=== PATIENT | male | born 1970 | race Caucasian/White ===

== ENCOUNTER 2023-06-13 11:16 | Outpatient (CLI) | payer BC, SELFPAY ==
--- NOTE | ~2023-06-13 | PE_ITS ---
EXAMINATION: PET_PETPSMAST_PT DATE: 06/13/2023 14:16 INDICATION: Prostate cancer TECHNIQUE: 8.705 mCi of pipflufolastat F-18 (18-F-DCFPyL) was administered i.v. Low dose computed to mography (CT) images were acquired from the base of the brain to the base of the brain to the proxima l thighs for attenuation correction and anatomic localization. Positron emission tomography (PET) carrol ges were acquired in the same distribution beginning 99 minutes after injection. Images including fus ed PET/CT images were reconstructed in axial, coronal, and sagittal planes. Automated exposure contro l technique was employed. The dose-length product was 667.76mGy-cm. COMPARISON: None FINDINGS: Head/neck: Typical pattern of symmetric physiologic increased activity in the lacrimal, parotid and submandibula r glands as well as along the mucosa of the nasal and oral cavities, the bela-, naso- and hypopharynx, the glottis and esophagus. There is also a typical pattern of symmetric tiny foci of mild likely phy siologic neural ganglia uptake at a few bilateral cervical neural foramina. No pathologically enlarge d cervical lymphadenopathy or suspicious foci of increased uptake in the visualized head or neck. Chest: No pulmonary nodules, pneumonia, pulmonary edema or other pulmonary infiltrates. Heart size is normal . Small amount of atherosclerotic coronary artery calcific lesion. No pericardial or pleural effusion . No pathologically enlarged or PSMA avid thoracic lymphadenopathy. Abdomen/pelvis/proximal thighs: Physiologic renal accumulation and excretion of activity in the kidneys, bladder and along portions o f ureters. Normal degree and slightly heterogenous pattern of increased uptake throughout the liver a nd spleen without radiologic correlate or dominant PSMA avid lesion. Cholecystectomy clips at the gal lbladder fossa. The pancreas and bilateral adrenal glands are normal. Moderate uptake scattered throu ghout the bowels with typical duodenal and proximal jejunal predominance and without radiologic corre late, also likely physiologic. Postoperative change of bilateral inguinal hernia repairs. There is as ymmetric left-sided predominant increased activity in the posterior peripheral zone of the prostate t he most intense focus on the left with maximal SUV of 5.8 consistent with primary prostate cancer. Ty pical pattern of small foci of mild likely physiologic neural ganglia uptake at a few of the bilatera l sacral and lower lumbar neural foramina. No other abnormal foci of increased uptake or pathological ly enlarged lymphadenopathy in the abdomen, pelvis or proximal thighs. Musculoskeletal: C5-C6 anterior spinal fusion with anterior plate and screw fixation. Mild lumbar levocurvature with m ild spondylosis. No suspicious lytic, blastic or PSMA avid bone lesions identified. A few foci of ski n contamination at the dorsum of the right hand and wrist. IMPRESSION: 1. Mild uptake in the prostate most prominent in the left peripheral zone consistent with reported pr imary prostate cancer. No evident metastatic disease. Reviewed, dictated and finalized at location A. PRESIDENT IMPRESSION: 1. Mild uptake in the prostate most prominent in the left peripheral zone consi stent with reported primary prostate cancer. No evident metastatic disease.
== END 2023-06-13 11:17 | disposition home or self-care (01) ==
PROVIDERS: PCP Nurse Practitioner Family; Visit Provider Urology
DX: C61 Malignant neoplasm of prostate (principal)
CPT/HCPCS: 78815; A9595

== ENCOUNTER 2024-08-09 09:30 | Emergency (ER) | payer BC, SELFPAY ==
[2024-08-09] VITALS (8 sets, daily range): BP systolic 126–148; BP diastolic 73–85; PULSE 84–106; RESP 15–20; TEMP 36.4; O2SAT 97–100
--- NOTE | ~2024-08-09 | CT_ITS ---
EXAMINATION: CT abdomen pelvis w con DATE: 08/09/2024 12:04 INDICATION: Upper abdomen pain. TECHNIQUE: Computed tomography (CT) of the abdomen and pelvis was performed with 100 cc Omnipaque 350 intravenous contrast. The dose-length product was 492.89 mGy-cm. Automated exposure control and iter ative reconstruction technique were employed. COMPARISON: None. FINDINGS: Lung bases are unremarkable. Heart size normal. No significant pleural or pericardial effus ion. There is atherosclerosis of the aorta without aneurysm or dissection. Fatty infiltration of the liver. The spleen, pancreas, adrenal glands are unremarkable. There are sma ll subcentimeter hypodensities of the kidneys, too small to characterize, although likely benign no r enal stones or hydronephrosis. Small fat-containing umbilical hernia. Nonobstructive bowel gas patter n. There are changes of prior lower abdominal hernia repair. Status post cholecystectomy.. Normal mic endix. IMPRESSION: 1. No acute abdominal abnormality. Reviewed, dictated and finalized at location B. ESS REPAIRER
--- NOTE | ~2024-08-09 | XR_ITS ---
EXAMINATION: XR chest 2V DATE: 08/09/2024 12:11 INDICATION: Chronic cough. Hemoptysis. Nausea. TECHNIQUE: Frontal and lateral views of the chest were obtained. COMPARISON: CT abdomen and pelvis 08/09/2024, PET/CT 06/13/2023 FINDINGS: There is mild scarring at the lung apices. No pleural effusion or pneumothorax. The heart s ize is normal. There are changes of anterior fusion procedure in cervical spine. There are surgical c lips in the abdomen. IMPRESSION: 1. Mild scarring at the lung apices. Reviewed, dictated and finalized at location A. ISTRY TECHNICIAN
[2024-08-09 10:13] LABS: Basophils Percent Auto 0.3 % (0.2-1.2); Eosinophils Absolute Auto 0.1 K/mm3 (0-0.3); Eosinophils Percent Auto 0.8 % (0-4.4); Hematocrit 45.6 % (42.0-52.0); Hemoglobin 15.6 g/dL (14.0-18.0); Immature Granulocyte Absolute 0.03 K/mm3 (0.00-0.031); Immature Granulocyte Percent A 0.3 % (0-0.5); Lymphocytes Absolute Auto 2.09 K/mm3 (0.9-3.2); Lymphocytes Percent Auto 22.1 % (18.3-44.2); Mean Corpuscular HGB Conc 34.2 g/dl (32-36); Mean Corpuscular Hemoglobin 30.9 pg (26-34); Mean Corpuscular Volume 90.3 fl (80-100); Mean Platelet Volume 11.6 fl (7.4-10.4); Monocytes Absolute Auto 0.5 K/mm3 (0.1-0.6); Monocytes Percent Auto 5.7 % (2.6-8.5); Neutrophils Absolute Auto 6.7 K/mm3 (1.3-6.7); Neutrophils Percent Auto 70.8 % (45.5-73.1); Platelet Count Result 224 k/mm3 (150-375); Red Blood Count 5.05 M/mm3 (4.6-6.20); Red Cell Distribution Width 13.6 % (11.5-14.5); White Blood Count 9.5 K/mm3 (4.5-10.0)
[2024-08-09 10:25] LABS: Alanine Aminotransferase 26 U/L (6-50); Albumin Level 4.3 g/dL (3.5-5.1); Alkaline Phosphatase 75 U/L (38-126); Anion Gap 12 mmol/L (4-12); Aspartate Amino Transferase 32 U/L (17-59); Bilirubin,Total 1.1 mg/dL (0.2-1.3); Blood Urea Nitrogen 16 mg/dL (9-20); Calcium 9.6 mg/dL (8.4-10.2); Carbon Dioxide 25 mmol/L (22-30); Chloride 104 mmol/L (98-107); Estimated CRCL calculation 79 ml/min; Estimated Glomerular Filt Rate > 60; Glucose 102 mg/dL (65-110); INR 0.9; Partial Thromboplastin Time 22.7 Seconds (22.3-36.8); Potassium 3.8 mmol/L (3.4-5.0); Prothrombin Time 12.7 Seconds (11.1-14.7); Sodium 141 mmol/L (137-145)
[2024-08-09] MEDS: PANTOPRAZOLE SODIUM IV 40 MG VIAL IV PUSH (11:09)
[2024-08-09] MEDS: ONDANSETRON INJ 4 MG/2 ML VIAL IV PUSH (11:09)
--- NOTE | 2024-08-09 11:34 | ED.GIBLEED ---
HPI - GI Bleed General Chief complaint: GI Bleed Stated complaint: throwing up blood x3 Time Seen by Provider: 08/09/24 09:46 Source: patient Mode of arrival: ambulatory Limitations: no limitations History of Present Illness HPI Narrative: Patient is a 54 y/o male who presents the ED with report of hematemesis. Patient reports he has history of chronic cough for the last 7 years. He has seen his primary care doctor for this and it was previously thought to be related to sinus issues and acid reflux. He has been on pantoprazole for the past few months and has had some improvement with this medication. States this morning, he had a forceful episode of coughing which resulted in posttussive emesis. He notes that there was some bright red blood streaked in his mucus. He states this has never happened to him before. Prompted here for further evaluation. Does feel slightly nauseous currently. Denies significant abdominal pain. Did have some discomfort earlier with vomiting. Denies shortness of breath. Denies fevers. Related Data Allergies Allergy/AdvReac Type Severity Reaction Status Date / Time No Known Allergies Allergy Verified 08/09/24 13:11 Review of Systems Review of Systems: All systems reviewed & are unremarkable except as noted in HPI. All systems reviewed & are unremarkable except as noted in HPI and below Exam Narrative: GENERAL: Well appearing, well-nourished, non-toxic, in no acute distress. HEAD: Normocephalic, atraumatic. RESPIRATORY: Airway patent, respirations nonlabored. Clear to auscultation bilaterally, no rales, rhonchi, wheezing. CARDIOVASCULAR: Regular rate and rhythm without murmurs, rubs, or gallops. ABDOMINAL: Soft, minimal discomfort in epigastric region/left upper quadrant. Nondistended. Normoactive BS. MUSCULOSKELETAL: Moves all extremities. No gross deformities. SKIN: Warm, dry, normal color. NEURO: A&O X3. Speech clear. Cranial nerves II-XII grossly intact. Steady gait. No ataxic movements. PSYCHIATRIC: Appropriate mood and affect. Normal interaction. Course Vital Signs Vital signs: Vital Signs Temperature 97.6 F 08/09/24 09:47 Pulse Rate 104 H 08/09/24 09:47 Respiratory Rate 16 08/09/24 09:47 Blood Pressure 148/85 H 08/09/24 09:47 Pulse Oximetry 99 08/09/24 09:47 Oxygen Delivery Room Air 08/09/24 09:47 Temperature 97.6 F 08/09/24 09:47 Pulse Rate 91 08/09/24 11:31 Respiratory Rate 17 08/09/24 11:31 Blood Pressure 126/78 08/09/24 11:31 Pulse Oximetry 98 08/09/24 11:31 Oxygen Delivery Room Air 08/09/24 09:47 MDM - GI Bleed MDM Narrative Medical decision making narrative: Patient presented to ED with concern for hemoptysis, reports chronic cough, post tussive emesis today with some streaking blood. Vital signs are stable upon arrival. Patient is in no acute distress. He is not on any anticoagulation. Cbc without leukocytosis. Hemoglobin is stable at 15.6 today. CMP is unremarkable. Stable electrolytes and kidney function. Normal LFTs. D-dimer WNL. CT scan of abdomen/pelvis was unremarkable. Chest x-ray was mild apical scarring, no acute focal findings. Discussed lab and imaging findings with patient, overall reassuring workup. Patient did report episode of coughing/vomiting today was very forceful. 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 Patient has remained stable throughout ED stay. No evidence of hemodynamic instability. No evidence of ongoing hemorrhage. Has not had any further episodes of emesis/hematemesis in the ED. Feel he is safe for d/c home with close OP f/u. Recommended follow-up with PCP for further evaluation. Also recommended follow-up with GI. Continue pantoprazole. Given GI cocktail here with improvement. Will also rx zofran for home. Given strict return precautions. Patient voiced understanding. He feels comfortable discharge home. Discharged in stable condition. Differential Diagnosis Differential diagnosis: Likely esophageal varices, gastritis, Joann-Keen syndrome, Upper gastrointestinal hemorrhage and other (PE, gastroenteritis) Medical Records Attestation: I reviewed the patient's medical records. Lab Data Attestation: I reviewed the patient's lab results. 08/09/24 10:06 08/09/24 10:06 Labs: Lab Results 08/09/24 Range/Units 10:06 WBC 9.5 (4.5-10.0) K/mm3 RBC 5.05 (4.6-6.20) M/mm3 Hgb 15.6 (14.0-18.0) g/dL Hct 45.6 (42.0-52.0) % MCV 90.3 (80-100) fl MCH 30.9 (26-34) pg MCHC 34.2 (32-36) g/dl RDW 13.6 (11.5-14.5) % Plt Count 224 (150-375) k/mm3 MPV 11.6 H (7.4-10.4) fl Immature Gran % (Auto) 0.3 (0-0.5) % Neut % (Auto) 70.8 (45.5-73.1) % Lymph % (Auto) 22.1 (18.3-44.2) % [place] % (Auto) 5.7 (2.6-8.5) % Eos % (Auto) 0.8 (0-4.4) % Baso % (Auto) 0.3 (0.2-1.2) % Lymph # (Auto) 2.09 (0.9-3.2) K/mm3 [place] # (Auto) 0.5 (0.1-0.6) K/mm3 Eos # (Auto) 0.1 (0-0.3) K/mm3 Baso # (Auto) 0.0 (0.0-0.1) K/mm3 Abs Immat Gran (auto) 0.03 (0.00-0.031) K/mm3 Absolute Neuts (auto) 6.7 (1.3-6.7) K/mm3 Absolute Nucleated RBC 0.000 (0.0-0.012) K/mm3 Nucleated RBC % 0.0 (0.0-0.2) % PT 12.7 (11.1-14.7) Seconds INR 0.9 APTT 22.7 (22.3-36.8) Seconds D-Dimer < 0.27 (<0.48) ug/mL Sodium 141 (137-145) mmol/L Potassium 3.8 (3.4-5.0) mmol/L Chloride 104 (98-107) mmol/L Carbon Dioxide 25 (22-30) mmol/L Anion Gap 12 (4-12) mmol/L BUN 16 (9-20) mg/dL Creatinine 1.01 (0.7-1.3) mg/dL Estim Creat Clear Calc 79 ml/min Estimated GFR > 60 (59 - ) Glucose 102 (65-110) mg/dL Calcium 9.6 (8.4-10.2) mg/dL Total Bilirubin 1.1 (0.2-1.3) mg/dL AST 32 (17-59) U/L ALT 26 (6-50) U/L Alkaline Phosphatase 75 (38-126) U/L Total Protein 8.0 (6.3-8.2) g/dL Albumin 4.3 (3.5-5.1) g/dL Blood Type A Positive Antibody Screen Negative Imaging Data Attestation: I personally reviewed and interpreted this imaging study as follows: Radiologist's impression: ITS Impressions Abdomen/Pelvis CT 08/09/24 12:07 IMPRESSION: 1. No acute abdominal abnormality. Chest X-Ray 08/09/24 12:13 IMPRESSION: 1. Mild scarring at the lung apices. Discharge Plan Discharge Clinical Impression: Esophagitis, Chronic cough Patient Disposition: Home, Self-Care Condition: Stable Instructions: Antibiotic Form, Gastritis (ED), Gastrointestinal Bleeding (ED), Joann-Keen Syndrome (ED) Additional Instructions: Your workup here was reassuring. Continue pantoprazole as prescribed. You may also take Pepcid as needed for acid reflux. Utilize Zofran as needed for further nausea. Follow-up with your primary care doctor and GI for further evaluation and potential future endoscopy. Return to the ED if you experience recurrent symptoms, severe bleeding, difficulty breathing or feeling short of breath, unable to keep down food or drink, feeling dizzy or lightheaded, passing out, blood in stool, dark black stools, or any other symptoms of concern. Patient Language: Bulgarian Prescriptions: New ondansetron 4 mg tablet,disintegrating 4 mg PO Q8H PRN (Reason: nausea and vomiting) Qty: 15 0RF Follow-up/Referrals: Pamela,Jael Urrutia APRN [Primary Care Provider] - Rafael Rojas MD [Physician] - (GI) Time of Disposition: 13:03
[2024-08-09 11:40] LABS: D Dimer < 0.27 ug/mL (<0.48)
--- OUTSIDE RECORDS SUMMARY | 2024-08-09 12:13 | XMS_ITS | Referral Summary ---
Author Organization [facility] Address [address] [place] [address] Care Team Providers Care Battery Assembler Plastic Name Role Phone Jael Santiago NP Primary Care Provider [phone] Codey Lobo MD Unavailable [phone] Encounters Date Type Department Care Team Description 06/25/2024 10:00 AM OVERWEAVER Office Visit [facility] Care at [address] [address] Lc Khalil NP Acute maxillary sinusitis, recurrence not specified (Primary Dx) 05/31/[address] [facility] Medical [facility] Primary Care at [address] [address] Jael Santiago NP 05/31/2024 Orders Only [facility] Primary Care at [address] [address] Jael Santigao NP 05/31/[address] [facility] Primary Care at [address] [address] Jael Santiago NP from Last 3 Months Allergies Active Allergy Reactions Criticality Noted Date Comments Iodinated Contrast Media Anaphylaxis High Shellfish Containing Products Anaphylaxis High 04/26 Tissue Adhesive Rash Medium 12/13/2020 Medications vibegron (Gemtesa) 75 mg tablet Take 75 mg by mouth daily Active fluticasone propionate (FLONASE) 50 mcg/actuation nasal sprayIndications: Bilateral acute serous otitis media, recurrence not specified Administer 2 sprays into each nostril daily 1 each 023 Active tadalafiL (CIALIS) 5 mg tablet Take 1 tablet (5 mg total) by mouth daily Active triamcinolone (KENALOG) 0.1 % cream Apply to affected area 1-2 times daily as needed. Do not use in groin region 15 g 5 024 Active Additional Information Patient not taking.Reported on 12/01/2023 atorvastatin (LIPITOR) 40 mg tabletIndications :Mixed hyperlipidemia TAKE 1 TABLET BY MOUTH EVERY DAY 90 tablet [address] (PROTONIX) 40 mg EC tablet TAKE 1 TABLET BY MOUTH EVERY DAY 90 tablet 1 024 Active allopurinoL 200 mg tablet Take 200 mg by mouth daily 90 tablet 1 024 Active oxyBUTYnin XL (DITROPAN XL) 15 mg 24 hr tablet Take 1 tablet (15 mg total) by mouth daily 024 Active losartan-hydroCHL OROthiazide (HYZAAR) 50-12.5 mg per tabletIndications :Primary hypertension TAKE 1 TABLET BY MOUTH EVERY DAY 100 tablet 025 Active ALPRAZolam (XANAX) 0.25 mg tablet TAKE 1 TABLET BY MOUTH EVERY DAY NEEDED FOR ANXIETY 30 tablet 025 Active losartan-hydroCHL OROthiazide (HYZAAR) 50-12.5 mg per tabletIndications :Primary hypertension TAKE 1 TABLET BY MOUTH EVERY DAY 90 tablet 1 024 2024 Discontinued ALPRAZolam (XANAX) 0.25 mg tablet TAKE 1 TABLET BY MOUTH EVERY DAY NEEDED FOR ANXIETY 30 tablet 024 2024 Discontinued Active Problems Problem Noted Date Diagnosed Date Pre-op examination 08/05/2023 Assessment & Plan (08/05/2023 11:18 AM OVERWEAVER): Contingent on lab and CXR review, patient deemed low to moderate risk for adverse perioperative reaction r/t anesthesia. Anxiety 11/07/2022 Assessment & Plan (02/27/2023 12:29 PM CDT): Controlled overall, takes Alprazolam approximately once per month Assessment & Plan (11/07/2022 10:29 AM CDT): Will try him on propanolol. Discussed he can take prn or daily. Follow up in 6-8 weeks. Annual physical exam 11/07/2022 Assessment & Plan (11/07/2022 10:33 AM CDT): C scope done 2020 Flu sht annually Tdap declined today Shingrix discussed COVID vaccinated Generally in good health. HM updated as per overview. Awaiting routine labwork. Discussed proper diet, regular exercise, adequate water intake, adequate sleep. Information given on health maintenance. Chest pressure 11/07/2022 Assessment & Plan (11/07/2022 10:40 AM CDT): EKG normal . Will go ahead and proceed with stress test. S/P cervical spinal fusion 12/20/2020 Assessment & Plan (11/07/2022 10:29 AM CDT): He is starting to have a lot of pain again. Referral placed to orthospine. Benign prostatic hyperplasia 12/20/2020 Assessment & Plan (02/27/2023 12:29 PM CDT): Had elevated PSA, he has been seeing Urology and labs being repeated in March, possible need to biopsy. Assessment & Plan (11/07/2022 10:18 AM CDT): Taking Tamsulosin. Idiopathic gout involving toe of right foot 11/23 Assessment & Plan (02/27/2023 12:28 PM CDT): Flares 1-2x/year, most recently a few weeks ago. Sx have resolved. Indomethacin trial for next flare. Uric acid level to be drawn and x-ray of the foot as the MTP joint of great toe is prominent/abnormal (likely a bunion). Assessment & Plan (11/07/2022 10:22 AM CDT): Last flare a few weeks ago, no meds. Colchicine worked before when needed. Mixed hyperlipidemia 12/20/2020 Assessment & Plan (04/20/2024 10:13 AM CDT): Continues Atorvastatin, no side effects reported. Updated labs ordered. Assessment & Plan (02/27/2023 12:27 PM CDT): Continues Atorvastatin, no side effects reported. Patient had labs drawn x 3 months ago. Assessment & Plan (11/07/2022 10:28 AM CDT): Taking Atorvastatin. Essential hypertension 12/20/2020 Assessment & Plan (04/20/2024 10:13 AM CDT): BP normal in office, continuing Losartan-HCTZ Updated labs ordered Assessment & Plan (11/07/2022 10:28 AM CDT): Controlled on losartan/hctz Assessment & Plan (06/24/2021 10:09 AM OVERWEAVER): Confirmed he is taking medications. His BP is fine today. Advised to monitor at home and let me know if readings are elevated. Likely elevated reading in UC secondary to his URI symptoms. Gastroesophageal reflux disease 03/14/2020 Assessment & Plan (11/07/2022 10:29 AM CDT): Not taking Omeprazole consistently. Having nausea in the AM from stress and intermittent chest pressure and chronic cough. Advised to restart omeprazole daily. Chronic sinusitis 03/06/2020 Assessment & Plan (11/07/2022 10:17 AM CDT): Stable on flonase and astelin. Increased frequency of urination 07/17/2017 Neck pain 07/17/2017 Numbness of upper extremity 07/17/2017 Postlaminectomy syndrome of cervical region 06/24 Deviated nasal septum 08/23/2015 Chronic sinusitis 05/12/2013 Hay fever 05/12/2013 Stiffness of finger joint 11/29/2010 Resolved Problems Problem Noted Date Diagnosed Date Resolved Date Acute idiopathic gout involv ing toe of right foot 08/01/2021 11/07/2022 Assessment & Plan (08/01/2021 11:12 AM OVERWEAVER): Likely secondary to dietary intake over the weekend. Renal function is normal. Will give him colchicine for symptoms. Discussed potential for GI symptoms and when to stop medication. Call for new/worsening symptoms or failure to improve as anticipated. Ear fullness, left 06/24/2021 3 Assessment & Plan (06/24/2021 10:10 AM OVERWEAVER): He meets criteria for abx coverage with persistent symptoms past two weeks. Will give Augmentin. Advised continue Mucinex. Afrin x 3 days, discussed no more after that. Not giving Sudafed given his history of htn but could consider if symptoms don't resolve, would need to monitor BP carefully. Chronic sore throat 06/24/2021 11/08/19 23 Assessment & Plan (06/24/2021 10:10 AM OVERWEAVER): No acutely worse today. Restart PPI and he sees GI in 3 weeks. Will defer to them whether he needs another EGD. Seasonal allergic rhinitis due to pollen 03/20/2021 11/07/2022 Allergic rhinitis due to dust mite 03/20/2021 11/07/2022 Allergic rhinitis due to mold 03/20/2021 11/07/2022 Unilateral inguinal hernia w ithout obstruction or gangrene 07/19/2020 11/07/2022 Overview (07/19/2020): Added automatically from request for surgery [id number] Epistaxis 05/23/2020 11/07/2022 Chronic maxillary sinusitis 03/07/2020 11/07/2022 Overview (03/07/2020): Added automatically from request for surgery [id number] Hypertrophy of nasal turbinates 03/06/2020 11/07/2022 Deviated nasal septum 03/06/20202022 Osteoarthritis of spine with radiculopathy, cervical region 12/09/2017 11/07/2022 Immunizations Immunization Administration Dates Next Due Influenza, Quadrivalent, Christel l Culture-based MDCK, Preservative Free, Antibiotic Free, Intramuscular 05/22/2022 Influenza, Quadrivalent, Spl it, Intramuscular 03/26/2015 Influenza, Quadrivalent, Spl it, Preservative Free, Intramuscular 03/07/2020,04/05/2018 Influenza, Trivalent, Preser vative Free, Intramuscular 06/02/2016 Influenza, Unspecified 04/13/2024,2022(Deferred: Patient Refused) Pfizer SARS-CoV-2 Monovalent Vaccination (12+ Yrs) PURPLE 10/09/2020,09/18/2020 Social History Tobacco Use Types Packs/Day Years Used Date Smoking Tobacco: Some Days Cigars Smokeless Tobacco: Never Comments:2 cigars per month Alcohol Use Standard Drinks/Week Comments Yes 10 (1 standard drink = 0.6 oz pu re alcohol) AUDIT-C Answer Date Recorded Q1: How often do you have a drink containing alcohol? 4 or more times a week 02/14/2021 Q2: How many drinks containi ng alcohol do you have on a typical day when you are drinking? 1 or 2 Q3: How often do you have si x or more drinks on one occasion? Never 02/14/2021 PHQ-2 Answer Date Recorded PHQ-2 Total Score (If total score is 3 or more points, staff should administer the PHQ-9) 0 04/20/2024 Sex and Gender Information Value Date Recorded Sex Assigned at Not on file Legal Sex Male 8:22 PM OVERWEAVER Gender Identity Not on file Sexual Orientation Straight 02/29/2020 8: 03 PM CDT Last Filed Vital Signs Vital Sign Reading Time Taken Comments Blood Pressure 122/84 06/25/2024 10:01 AM OVERWEAVER Pulse 92 06/25/2024 10:01 AM OVERWEAVER Temperature 37 C (98.6 F) 06/25/2024 10:01 AM OVERWEAVER Respiratory Rate 20 06/25/2024 10:01 AM OVERWEAVER Oxygen Saturation 98% 06/25/2024 10:01 AM OVERWEAVER Inhaled Oxygen Concentration - - Weight 93 kg (205 lb) 06/25/2024 10:01 AM OVERWEAVER Height 177.8 cm (5' 10 ) 06/25/2024 10:01 AM OVERWEAVER Body Mass Index 29.41 06/25/2024 10:01 AM OVERWEAVER Plan of Treatment Not on file Medical Devices Implanted Type Area Rd Project Manager Device Identifier Shelf Expiration Date Model / Serial / Lot [employer] [id number] Ventralight St Sepra 6x4in Monofilament Absorbable Low Profile Latex Free - [id number] Implanted:Qty: 1 on 09/07/2020 by Moe Sellers MD PhD at [facility] Mesh Left: Groin [employer]/C R Bard [id number] 11/17/2021 [id number] / / [id number] [employer] [id number] Ventralight St Sepra 6x4in Monofilament Absorbable Low Profile Latex Free - [id number] Implanted:Qty: 1 on 09/07/2020 by Moe Sellers MD PhD at [facility] Mesh Right: Groin [employer] Bard [id number] 11/17/2021 [id number] / / [id number] Cervical Fusion N/A: Neck Procedures Procedure Name Priority Date/Time Associated Diagnosis Comments URIC ACID Routine 05/26/2024 9:28 AM OVERWEAVER LIPID PANEL Routine 05/26/2024 9:28 AM OVERWEAVER Mixed hyperlipidemia Essential hypertension COMPREHENSIVE METABOLIC PANEL Routine 05/26/2024 9:28 AM OVERWEAVER Mixed hyperlipidemia Essential hypertension CBC WITH AUTO DIFFERENTIAL Routine 05/26/2024 9:28 AM OVERWEAVER Mixed hyperlipidemia Essential hypertension HEPATITIS C ANTIBODY Routine 05/26/2024 9:28 AM OVERWEAVER Encounter for hepatitis C screening test for low risk patient PSA SCREEN Routine 11/06/2022 8:26 AM CDT Annual physical exam Screening PSA (prostate specific antigen) COLONOSCOPY 12/13/2020 6:38 AM CDT from Last 3 Months or Most Recently Relevant to Health Maintenance Results * CBC with auto differential (05/26/2024 9:28 AM OVERWEAVER) WBC 7.7 3.8 - 10.8 Thousand/u L [facility] RBC, POC 4.89 4.20 - 5.80 Million/uL [facility] Hgb 15.0 13.2 - 17.1 g/dL [facility] Hct 45.2 38.5 - 50.0 % [facility] MCV 92.4 80.0 - 100.0 fL [facility] MCH 30.7 27.0 - 33.0 pg [facility] MCHC 33.2 32.0 - 36.0 g/dL [facility] Comment: For adults, a slight decrease in the calculated MCHC value (in the range of 30 to 32 g/dL) is most likely not clinically significant; however, it should be interpreted with caution in correlation with other red cell parameters and the patient's clinical condition. Rdw 13.2 11.0 - 15.0 % [facility] Platelets 240 140 - 400 Thousand/u L [facility] MPV 11.7 7.5 - 12.5 fL [facility] Neutrophils, abs 4,481 1,500 - 7,800 cells/uL [facility] Lymphocytes, abs 2,433 850 - 3,900 cells/uL [facility] Monocyte abs 578 200 - 950 cells/uL [facility] Eosinophils, abs 169 15 - 500 cells/uL [facility] Basophils, abs 39 0 - 200 cells/uL [facility] Neutrophils 58.2 % [facility] Lymphocyte pct 31.6 % [facility] Monocytes 7.5 % [facility] Eosinophils 2.2 % [facility] Basophils 0.5 % [facility] Blood 05/26/2024 9:28 AM OVERWEAVER 05/26/2024 9:30 AM OVERWEAVER Narrative [facility] - 05/27/2024 2:03 AM OVERWEAVER FASTING:YES PATIENT REFUSED SOME TESTING; PATIENT ENCOURAGED TO RETURN. FASTING: YES us Jael Santiago NP LAB BLOOD ORDERABLES Final Resul t [facility] [address] [place] [address] * Hepatitis C antibody Blood (05/26/2024 9:28 AM OVERWEAVER) Hep C Ab NON-REACTI VE NON-REACT ENRIQUE [facility] Comment: HCV antibody was non-reactive. There is no laboratory evidence of HCV infection. In most cases, no further action is required. However, if recent HCV exposure is suspected, a test for HCV RNA (test code 91678) is suggested. For additional information please refer to http://education.PsychologyOnline/faq/KBU39k6 (This link is being provided for informational/ educational purposes only.) Blood 05/26/2024 9:28 AM OVERWEAVER 05/26/2024 9:30 AM OVERWEAVER Narrative [facility] - 05/27/2024 2:03 AM OVERWEAVER FASTING:YES PATIENT REFUSED SOME TESTING; PATIENT ENCOURAGED TO RETURN. FASTING: YES us Jael Santiago NP LAB MICROBIOLOGY - GENERAL ORDER JESU Final Result Performing Organization Address [facility]/ZIP Co de Phone Number [facility] [address] [place] [address] * (ABNORMAL) Uric acid (05/26/2024 9:28 AM OVERWEAVER) Uric acid 8.2(H) 4.0 - 8.0 mg/dL [facility] Comment: Therapeutic target for gout patients: <6.0 mg/dL 05/26/2024 9:28 AM OVERWEAVER 05/26/2024 9:30 AM OVERWEAVER Narrative [facility] - 05/27/2024 2:03 AM OVERWEAVER FASTING:YES PATIENT REFUSED SOME TESTING; PATIENT ENCOURAGED TO RETURN. FASTING: YES us Jael Santiago NP LAB BLOOD ORDERABLES Final Resul t [facility] [address] [place] [address] * (ABNORMAL) Lipid panel (05/26/2024 9:28 AM OVERWEAVER) Cholesterol 164 <200 mg/dL [facility] HDL 61 > OR = 40 mg/dL [facility] Triglycerides 160(H) <150 mg/dL [facility] LDL 77 mg/dL (calc) [facility] Comment: Reference range: <100 Desirable range <100 mg/dL for primary prevention; <70 mg/dL for patients with CHD or diabetic patients with > or = 2 CHD risk factors. LDL-C is now calculated using the Samantha calculation, which is a validated novel method providing better accuracy than the Friedewald equation in the estimation of LDL-C. Rony COOMBS et al. LEEROY. 2013;310(39): 0509-7445 (http://education.Corrupt Lace/faq/NJP672) Chol/HDL ratio 2.7 <5.0 (calc) [facility] Non-HDL, (LDL+VLDL) 103 <130 mg/dL (calc) [facility] Comment: For patients with diabetes plus 1 major ASCVD risk factor, treating to a non-HDL-C goal of <100 mg/dL (LDL-C of <70 mg/dL) is considered a therapeutic option. Blood 05/26/2024 9:28 AM OVERWEAVER 05/26/2024 9:30 AM OVERWEAVER Narrative [facility] - 05/27/2024 2:03 AM OVERWEAVER FASTING:YES PATIENT REFUSED SOME TESTING; PATIENT ENCOURAGED TO RETURN. FASTING: YES Jael Santiago NP LAB BLOOD ORDERABLES Final Resul t [facility] [address] [place] [address] * (ABNORMAL) Comprehensive metabolic panel (05/26/2024 9:28 AM OVERWEAVER) Pathologist [facility] Glucose 100(H) 65 - 99 mg/dL [facility] Comment: Fasting reference interval For someone without known diabetes, a glucose value between 100 and 125 mg/dL is consistent with prediabetes and should be confirmed with a follow-up test. BUN 12 7 - 25 mg/dL [facility] Creatinine 0.96 0.70 - 1.30 mg/dL [facility] eGFR 95 > OR = 60 mL/min/1.7 3m2 [facility] BUN/creat ratio SEE NOTE: 6 - 22 (calc) [facility] Comment: Not Reported: BUN and Creatinine are within reference range. Sodium 140 135 - 146 mmol/L [facility] Potassium, pl 3.7 3.5 - 5.3 mmol/L [facility] Chloride 102 98 - 110 mmol/L [facility] CO2 28 20 - 32 mmol/L [facility] Calcium 9.3 8.6 - 10.3 mg/dL [facility] Protein, sr 6.4 6.1 - 8.1 g/dL [facility] Albumin 4.2 3.6 - 5.1 g/dL [facility] GLOBULIN 2.2 1.9 - 3.7 g/dL (calc) [facility] Alb/glob ratio 1.9 1.0 - 2.5 (calc) [facility] Bilirubin, total 0.6 0.2 - 1.2 mg/dL [facility] Alk phos 57 35 - 144 U/L [facility] AST 21 10 - 35 U/L [facility] ALT (SGPT) 20 9 - 46 U/L [facility] Blood 05/26/2024 9:28 AM OVERWEAVER 05/26/2024 9:30 AM OVERWEAVER Narrative [facility] - 05/27/2024 2:03 AM OVERWEAVER FASTING:YES PATIENT REFUSED SOME TESTING; PATIENT ENCOURAGED TO RETURN. FASTING: YES us Jael Santiago STOCK CHASER LAB BLOOD ORDERABLES Final Resul t [facility] [address] [place] [address] * (ABNORMAL) PSA screen (11/06/2022 8:26 AM CDT) PSA 4.36(H) < OR = 4.00 ng/mL [facility] Comment: The total PSA value from this assay system is standardized against the WHO standard. The test result will be approximately 20% lower when compared to the equimolar-standardized total PSA ([place]). Comparison of serial PSA results should be interpreted with this fact in mind. This test was performed using the Siemens chemiluminescent method. Values obtained from different assay methods cannot be used interchangeably. PSA levels, regardless of value, should not be interpreted as absolute evidence of the presence or absence of disease. Blood 11/06/2022 8:26 AM CDT 11/06/2022 8:27 AM CDT Narrative [facility] - 11/08/2022 2:59 AM CDT FASTING:YES FASTING: YES Jackie Carlos NP LAB BLOOD ORDERABLES Final Resu lt [facility] [address] [address] * COLONOSCOPY (12/13/2020 6:38 AM CDT) Anatomical Region Laterality Modality Other Narrative Procedure Note Luke Espinoza MD - 12/13/2020 6:38 AM CDT ENDOSCOPY LAB Patient Name: Ty Crowley Procedure Date: 12/13/2020 6:38 AM Admit Type: Outpatient Room: [facility] Date of : 1970 Instrument Name: [id number] Gender: Male Note Status: Finalized Procedure: Colonoscopy Indications: Screening for colorectal malignant neoplasm, Thisis the patient's first colonoscopy Providers: Eda Espinoza M.D. Referring MD: Noemy A. Dan, M.D. Medicines: Monitored Anesthesia Care Complications: No immediate complications. Estimated Blood Loss: Estimated blood loss was minimal. Procedure: Pre-Anesthesia Assessment: - Immediately prior to administration ofmedications, the patient was re-assessed for adequacy to receive sedatives. - The risks and benefits of the procedure and the sedation options and risks were discussed with the patient. All questions were answered and informed consent was obtained. The benefits, risks and alternatives of theprocedure and sedation were discussed and informed consentwas obtained. All questions were answered. Please referto the signed informed consent document in the medical record. The scope was passed under direct vision.The Colonoscope was introduced through the anus and advanced to the the cecum, identified byappendiceal orifice and ileocecal valve. The colonoscopy was performed without difficulty. The patient tolerated the procedure well. The quality of the bowel preparation was good. The quality of the bowel preparation was evaluated using the BBPS (BostonBowel Preparation Scale) with scores of: Right Colon = 3, Transverse Colon = 3 and Left Colon = 3 (entiremucosa seen well with no residual staining, smallfragments of stool or opaque liquid). The total BBPS score equals 9. The bowel preparation used was Miralaxvia split dose instruction. Bowel prep was administered using a split dose. Findings: Five sessile polyps were found in the sigmoid colon and transverse colon. The polyps were 3 to 4 mm in size, and some appeared hyperplastic. These polyps were removed with a cold snare, and onewas removed with cold biopsy forceps. Resection and retrieval werecomplete. The colon (entire examined portion) appeared normal. Biopsies weretaken with a cold forceps for histology. No additional abnormalities were found on retroflexion. Impression: - Five 3 to 4 mm polyps, although not all appeared adenomatous. Resected and retrieved. - The entire examined colon is normal. Biopsied. Recommendation: - Await pathology results. Repeat colonoscopy in 5 years for surveillance, unless all polyps are adenomatous, when the interval can be shortened. Attending Participation: I personally performed the entire procedure. Electronically signed by Eda Espinoza MD Luke Espinoza M.D. 12/13/2020 8:18:40 AM Number of Addenda: 0 Note Initiated On: 12/13/2020 6:38 AM Luke Espinoza MD ENDOSCOPY PROCEDURES Final Result from Last 3 Months or Most Recently Relevant to Health Maintenance Insurance [employer] OOS [employer] Advance Directives For more information, please contact: [phone] * Full Code (Latest Code Status on File) Date Activated Date Inactivated Comments 12/13/2020 7:09 AM 12/13/2020 1:51 PM Care Teams Battery Assembler Plastic Relationship Specialty Start Date End Date Jael Santiago NP [address] [facility] [address] [place] [address] PCP - General Family Medicine 02/27/23 Codey Lobo MD [address] [place] [address] Consulting Physician Urology 02/27/23
--- OUTSIDE RECORDS SUMMARY | 2024-08-09 12:13 | XMS_ITS | Clinical Summary ---
Author Organization [facility] Address [address] [place] [address] Care Team Providers Care Night Filler Name Role Phone Jael Santiago NP Primary Care Provider [phone] Codey Lobo MD Unavailable [phone] Allergies Active Allergy Reactions Criticality Noted Date [...] tablet (15 mg total) by mouth daily Active losartan-hydroCHL OROthiazide (HYZAAR) 50-12.5 mg per [...] 08/05/2023 Assessment & Plan (08/05/2023 11:18 AM FINANCIAL REPORTING SPECIALIST): Contingent on lab and CXR review, patient [...] losartan/hctz Assessment & Plan (06/24/2021 10:09 AM FINANCIAL REPORTING SPECIALIST): Confirmed he is taking medications. His BP [...] 11/07/2022 Assessment & Plan (08/01/2021 11:12 AM FINANCIAL REPORTING SPECIALIST): Likely secondary to dietary intake over the weekend. Renal function is normal. Will give him colchicine for symptoms. Discussed potential for GI symptoms and when to stop medication. Call for new/worsening symptoms or failure to improve as anticipated. Ear fullness, left 06/24/2021 3 Assessment & Plan (06/24/2021 10:10 AM FINANCIAL REPORTING SPECIALIST): He meets criteria for abx coverage with persistent symptoms past two weeks. Will give Augmentin. Advised continue Mucinex. Afrin x 3 days, discussed no more after that. Not giving Sudafed given his history of htn but could consider if symptoms don't resolve, would need to monitor BP carefully. Chronic sore throat 06/24/2021 11/08/19 23 Assessment & Plan (06/24/2021 10:10 AM FINANCIAL REPORTING SPECIALIST): No acutely worse today. Restart PPI and he sees GI in 3 weeks. Will defer to them whether he needs another EGD. Seasonal allergic rhinitis due to pollen 03/20/2021 11/07/2022 Allergic rhinitis due to dust mite 03/20/2021 11/07/2022 Allergic rhinitis due to mold 03/20/2021 11/07/2022 Unilateral inguinal hernia w ithout obstruction or gangrene 07/19/2020 11/07/2022 Overview (07/19/2020): Added automatically from request for surgery [id number] Epistaxis 05/23/2020 11/07/2022 Chronic maxillary sinusitis 03/07/2020 11/07/2022 Overview (03/07/2020): Added automatically from request for surgery [id number] Hypertrophy of nasal turbinates 03/06/2020 11/07/2022 Deviated nasal septum 03/06/20202022 Osteoarthritis of spine with radiculopathy, cervical region 12/09/2017 11/07/2022 Encounters Date Type Department Care Team Description 06/25/2024 10:00 AM FINANCIAL REPORTING SPECIALIST Office Visit [facility] at [address] [address] Lc Khalil NP Acute maxillary sinusitis, recurrence not specified (Primary Dx) 05/31/2024 Orders Only [facility] at [address] [address] Jael Santiago NP 05/31/2024 Orders Only [facility] at [address] [address] Jael Santiago NP 05/31/2024 Telephone [facility] at [address] [address] Jael Santiago NP from Last 3 Months Immunizations Immunization Administration Dates Next Due Influenza, Quadrivalent, Christel l Culture-based MDCK, Preservative Free, Antibiotic Free, Intramuscular 05/22/2022 Influenza, Quadrivalent, Spl it, Intramuscular 03/26/2015 Influenza, Quadrivalent, Spl it, Preservative Free, Intramuscular 03/07/2020,04/05/2018 Influenza, Trivalent, Preser vative Free, Intramuscular 06/02/2016 Influenza, Unspecified 04/13/2024,2022(Deferred: Patient Refused) Pfizer SARS-CoV-2 Monovalent Vaccination (12+ Yrs) PURPLE 10/09/2020,09/18/2020 Surgical History Surgery Date Site/Laterality Comments TN RHINP PRIM LAT&ALAR CRTLGS&/ELVTN NASAL TI Rhinoplasty - (Added by TW Conv) TN CHOLECYSTECTOMY Cholecystectomy - (Added by TW Conv) NECK SURGERY Neck Surgery - C5-C6 fusion (Added by TW Conv) ANKLE SURGERY Ankle Surgery - achilles repair (Added by TW Conv) TN NJX AA&/STRD TFRML EPI CERVICAL/THORACIC 1 LEVEL Corticosteroid Inj Transforaminal Approach Cervical W/ Fluoroscopic Guidance - Right C6-7 (Added by TW Conv) TN INJ CERV/THORAC,W/WO CNTRST Corticosteroid Injection Interlaminar Approach Cervical - CEST (Added by TW Conv) NOSE SURGERY SPINE SURGERY ACHILLES TENDON LENGTHENING CHOLECYSTECTOMY ESOPHAGOGASTRODUODENOSCOPY NASAL SEPTUM SURGERY 03/23/2020 - 04/22/2020 LAPAROSCOPIC INGUINAL HERNIA REPAIR 2020 - 09/20/2020 Bilateral Medical History Medical History Date Comments Asthma childhood Mid back pain Neck pain Seasonal allergies Asthma Anxiety Bone fracture Gout Acid reflux disease PONV (postoperative nausea a nd vomiting) Arthritis Benign prostatic hyperplasia Essential hypertension 12/20/2020 Acute idiopathic gout involv ing toe of right foot 08/01/2021 Unilateral inguinal hernia w ithout obstruction or gangrene 07/19/2020 Added automatically from req uest for surgery [id number] Chronic maxillary sinusitis 03/07/2020 Adde d automatically from request for surgery [id number] Epistaxis 05/23/2020 Ear fullness, left 06/24/2021 Chronic sore throat 06/24/2021 Seasonal allergic rhinitis d ue to pollen 03/20/2021 Allergic rhinitis due to dust mite 03/20/2021 Allergic rhinitis due to mold 03/20/2021 Hypertrophy of nasal turbinates 03/06/2020 Deviated nasal septum 03/06/2020 Osteoarthritis of spine with radiculopathy, cervical region 12/09/2017 Family History Medical History Relation Name Comments Clotting disorder Father [place] Gout Father [place] Hypertension Father [place] Family history of hypertension - (Added by TW Conv) Anesthesia problems Neg Hx Relation Name Status Comments Father Richard Social History Tobacco Use Types Packs/Day Years [...] on file Legal Sex Male 8:22 PM FINANCIAL REPORTING SPECIALIST Gender Identity Not on file Sexual Orientation Straight 02/29/2020 8: 03 PM CDT Obstetrics History Last Filed Vital Signs Vital Sign Reading Time Taken Comments Blood Pressure 122/84 06/25/2024 10:01 AM FINANCIAL REPORTING SPECIALIST Pulse 92 06/25/2024 10:01 AM FINANCIAL REPORTING SPECIALIST Temperature 37 C (98.6 F) 06/25/2024 10:01 AM FINANCIAL REPORTING SPECIALIST Respiratory Rate 20 06/25/2024 10:01 AM FINANCIAL REPORTING SPECIALIST Oxygen Saturation 98% 06/25/2024 10:01 AM FINANCIAL REPORTING SPECIALIST Inhaled Oxygen Concentration - - Weight 93 kg (205 lb) 06/25/2024 10:01 AM FINANCIAL REPORTING SPECIALIST Height 177.8 cm (5' 10 ) 06/25/2024 10:01 AM FINANCIAL REPORTING SPECIALIST Body Mass Index 29.41 06/25/2024 10:01 AM FINANCIAL REPORTING SPECIALIST Plan of Treatment Health Maintenance Due Date Last Done Comments Pneumococcal vaccine <65 (1 of 2 - PCV) 1976 DTaP/Tdap/Td Vaccine (1 - Tdap) 1981 Hepatitis B Screening 1988 Zoster Vaccine (1 of 2) 2020 Regular Well Visit/Exam 18-64 11/08/2023 11/07/2022, 06/26/2021 Covid-19 Vaccine (2023-07 5 season) 2024 06/12/2021, 10/09/2020, 09/18/2020 Prostate Cancer Screening-PSA 11/06/2024, 10/11/2021, 06/25/2021 Depression Screening 04/20/2025 04/20/2024, 08/28/2023, 02/27/2023, Additional history exists Colon Cancer Screening-Colonoscopy 12/13/20252020 Influenza Vaccine Completed 04/13/2024, , 03/07/2020, Additional history exists Hepatitis C Screening Completed 05/26/2024 Medical Devices Implanted Type Area Carpet Measurer Device Identifier Shelf Expiration Date Model / Serial / Lot [employer] [id number] Ventralight St Sepra 6x4in Monofilament Absorbable Low Profile Latex Free - [id number] Implanted:Qty: 1 on 09/07/2020 by Moe Sellers MD PhD at [facility] Mesh Left: Groin [employer]/C R Bard [id number] 11/17/2021 [id number] / / [id number] [employer] [id number] Ventralight [address] Sepra 6x4in Monofilament Absorbable Low Profile Latex Free - [id number] Implanted:Qty: 1 on 09/07/2020 by Moe Sellers MD PhD at [facility] Mesh Right: Groin [employer]/C R Bard [id number] 11/17/2021 [id number] / / [id number] Cervical Fusion N/A: Neck Procedures Procedure Name Priority Date/Time Associated Diagnosis Comments URIC ACID Routine 05/26/2024 9:28 AM FINANCIAL REPORTING SPECIALIST LIPID PANEL Routine 05/26/2024 9:28 AM FINANCIAL REPORTING SPECIALIST Mixed hyperlipidemia Essential hypertension COMPREHENSIVE METABOLIC PANEL Routine 05/26/2024 9:28 AM FINANCIAL REPORTING SPECIALIST Mixed hyperlipidemia Essential hypertension CBC WITH AUTO DIFFERENTIAL Routine 05/26/2024 9:28 AM FINANCIAL REPORTING SPECIALIST Mixed hyperlipidemia Essential hypertension HEPATITIS C ANTIBODY Routine 05/26/2024 9:28 AM FINANCIAL REPORTING SPECIALIST Encounter for hepatitis C screening test for low risk patient PSA SCREEN Routine 11/06/2022 8:26 AM CDT Annual physical exam Screening PSA (prostate specific antigen) COLONOSCOPY 12/13/2020 6:38 AM CDT from Last 3 Months or Most Recently Relevant to Health Maintenance Results * CBC with auto differential (05/26/2024 9:28 AM FINANCIAL REPORTING SPECIALIST) WBC 7.7 3.8 - 10.8 Thousand/u L [facility] RBC, POC 4.89 4.20 - 5.80 Million/uL [facility] Hgb 15.0 13.2 - 17.1 g/dL [facility] Hct 45.2 38.5 - 50.0 % [facility] MCV 92.4 80.0 - 100.0 fL [facility] MCH 30.7 27.0 - 33.0 pg [facility] MCHC 33.2 32.0 - 36.0 g/dL [employer] [facility] Comment: For adults, a slight decrease in the calculated MCHC value (in the range of 30 to 32 g/dL) is most likely not clinically significant; however, it should be interpreted with caution in correlation with other red cell parameters and the patient's clinical condition. Rdw 13.2 11.0 - 15.0 % [facility] Platelets 240 140 - 400 Thousand/u L [id number] MPV 11.7 7.5 - 12.5 fL [facility] Neutrophils, abs 4,481 1,500 - 7,800 cells/uL [facility] Lymphocytes, abs 2,433 850 - 3,900 cells/uL [facility] Monocyte abs 578 200 - 950 cells/uL [facility] Eosinophils, abs 169 15 - 500 cells/uL [facility] Basophils, abs 39 0 - 200 cells/uL [facility] Neutrophils 58.2 % [facility] Lymphocyte pct 31.6 % [facility] Monocytes 7.5 % [id number] Eosinophils 2.2 % [facility] Basophils 0.5 % [facility] Blood 05/26/2024 9:28 AM FINANCIAL REPORTING SPECIALIST 05/26/2024 9:30 AM FINANCIAL REPORTING SPECIALIST Narrative [facility] - 05/27/2024 2:03 AM FINANCIAL REPORTING SPECIALIST FASTING:YES PATIENT REFUSED SOME TESTING; PATIENT ENCOURAGED TO RETURN. FASTING: YES Jael Santiago NP LAB BLOOD ORDERABLES Final Resul t Performing Organization Address City/[facility]/ZIP Co de Phone Number [id number] [address] [place] [address] * Hepatitis C antibody Blood (05/26/2024 9:28 AM FINANCIAL REPORTING SPECIALIST) Hep C Ab NON-REACTI VE NON-REACT ENRIQUE [facility] Comment: HCV antibody was non-reactive. There is no laboratory evidence of HCV infection. In most cases, no further action is required. However, if recent HCV exposure is suspected, a test for HCV RNA (test code 44799) is suggested. For additional information please refer to http://education.[employer]/faq/MWT58b8 (This link is being provided for informational/ educational purposes only.) Blood 05/26/2024 9:28 AM FINANCIAL REPORTING SPECIALIST 05/26/2024 9:30 AM FINANCIAL REPORTING SPECIALIST Narrative [facility] - 05/27/2024 2:03 AM FINANCIAL REPORTING SPECIALIST FASTING:YES PATIENT REFUSED SOME TESTING; PATIENT ENCOURAGED TO RETURN. FASTING: YES Jael Santiago NP LAB MICROBIOLOGY - GENERAL ORDER JESU Final Result Performing Organization Address City/[facility]/ZIP Co de Phone Number [facility] [address] [place] [address] * (ABNORMAL) Uric acid (05/26/2024 9:28 AM FINANCIAL REPORTING SPECIALIST) Uric acid 8.2(H) 4.0 - 8.0 mg/dL [id number] Comment: Therapeutic target for gout patients: <6.0 mg/dL 05/26/2024 9:28 AM FINANCIAL REPORTING SPECIALIST 05/26/2024 9:30 AM FINANCIAL REPORTING SPECIALIST Narrative [facility] - 05/27/2024 2:03 AM FINANCIAL REPORTING SPECIALIST FASTING:YES PATIENT REFUSED SOME TESTING; PATIENT ENCOURAGED TO RETURN. FASTING: YES us Jael Santiago SPRAY PAINTING MACHINE OPERATOR LAB BLOOD ORDERABLES Final Resul t Performing Organization Address [facility] Co de Phone Number [facility] [address] [place] [address] * (ABNORMAL) Lipid panel (05/26/2024 9:28 AM FINANCIAL REPORTING SPECIALIST) [facility] Cholesterol 164 <200 mg/dL [facility] HDL 61 > OR = 40 mg/dL [facility] Triglycerides 160(H) <150 mg/dL [facility] LDL 77 mg/dL (calc) [facility] Comment: Reference range: <100 Desirable range <100 mg/dL for primary prevention; <70 mg/dL for patients with CHD or diabetic patients with > or = 2 CHD risk factors. LDL-C is now calculated using the Rony-Piotr calculation, which is a validated novel method providing better accuracy than the Friedewald equation in the estimation of LDL-C. Rony SS et al. LEEROY. 2013;310(19): 6404-5724 (http://education.[employer]/faq/VQU024) Chol/HDL ratio 2.7 <5.0 (calc) [facility] Non-HDL, (LDL+VLDL) 103 <130 mg/dL (calc) [facility] Comment: For patients with diabetes plus 1 major ASCVD risk factor, treating to a non-HDL-C goal of <100 mg/dL (LDL-C of <70 mg/dL) is considered a therapeutic option. Blood 05/26/2024 9:28 AM FINANCIAL REPORTING SPECIALIST 05/26/2024 9:30 AM FINANCIAL REPORTING SPECIALIST Narrative [facility] - 05/27/2024 2:03 AM FINANCIAL REPORTING SPECIALIST FASTING:YES PATIENT REFUSED SOME TESTING; PATIENT ENCOURAGED TO RETURN. FASTING: YES us Jael Santiago NP LAB BLOOD ORDERABLES Final Resul t Performing Organization Address [facility] Co de Phone Number [facility] [address] [place] [address] * (ABNORMAL) Comprehensive metabolic panel (05/26/2024 9:28 AM FINANCIAL REPORTING SPECIALIST) Glucose 100(H) 65 - 99 mg/dL [facility] Comment: Fasting reference interval For someone without known diabetes, a glucose value between 100 and 125 mg/dL is consistent with prediabetes and should be confirmed with a follow-up test. BUN 12 7 - 25 mg/dL [facility] Creatinine 0.96 0.70 - 1.30 mg/dL [facility] eGFR 95 > OR = 60 mL/min/1.7 3m2 [facility] BUN/creat ratio SEE NOTE: 6 - 22 (calc) [facility] Comment: Not Reported: BUN and Creatinine are within reference range. Sodium 140 135 - 146 mmol/L [facility] Potassium, pl 3.7 3.5 - 5.3 mmol/L [facility] Chloride 102 98 - 110 mmol/L [facility] CO2 28 20 - 32 mmol/L [facility] Calcium 9.3 8.6 - 10.3 mg/dL [facility] Protein, sr 6.4 6.1 - 8.1 g/dL [facility] Albumin 4.2 3.6 - 5.1 g/dL [facility] GLOBULIN 2.2 1.9 - 3.7 g/dL (calc) [facility] Alb/glob ratio 1.9 1.0 - 2.5 (calc) [facility] Bilirubin, total 0.6 0.2 - 1.2 mg/dL [facility] Alk phos 57 35 - 144 U/L [facility] AST 21 10 - 35 U/L [facility] ALT (SGPT) 20 9 - 46 U/L [facility] Blood 05/26/2024 9:28 AM FINANCIAL REPORTING SPECIALIST 05/26/2024 9:30 AM FINANCIAL REPORTING SPECIALIST Narrative [facility] - 05/27/2024 2:03 AM FINANCIAL REPORTING SPECIALIST FASTING:YES PATIENT REFUSED SOME TESTING; PATIENT ENCOURAGED TO RETURN. FASTING: YES us Jael Santiago SPRAY PAINTING MACHINE OPERATOR LAB BLOOD ORDERABLES Final Resul t [id number] [address] [address] * (ABNORMAL) PSA screen (11/06/2022 8:26 AM CDT) PSA 4.36(H) < OR = 4.00 ng/mL [facility] Comment: The total PSA value from this assay system is standardized against the WHO standard. The test result will be approximately 20% lower when compared to the equimolar-standardized total PSA (Gumaro Steven). Comparison of serial PSA results should be [...] AM CDT FASTING:YES FASTING: YES Jackie Carlos SPRAY PAINTING MACHINE OPERATOR LAB BLOOD ORDERABLES Final Resu lt Performing Organization Address City/[facility]/ZIP Co de Phone Number [facility] [address] [place] [address] * COLONOSCOPY (12/13/2020 6:38 AM CDT) Anatomical Region Laterality Modality Other Narrative Procedure Note Luke Espinoza MD - 12/13/2020 6:38 AM CDT ENDOSCOPY LAB Patient Name: Ty Franklinkins Procedure Date: 12/13/2020 6:38 AM Admit Type: Outpatient Room: [facility] 1 Date of : 1970 Instrument Name: [id number] Gender: Male Note Status: Finalized Procedure: Colonoscopy Indications: Screening for colorectal malignant neoplasm, Thisis the patient's first colonoscopy Providers: Eda Espinoza M.D. Referring MD: Noemy Dan M.D. Medicines: Monitored Anesthesia Care Complications: No [...] Most Recently Relevant to Health Maintenance Insurance [employer] OOS [employer] ACCESS OOS BLUE ACCESS OOS Advance Directives For more information, please contact: [phone] * Full Code (Latest Code Status on File) Date Activated Date Inactivated Comments 12/13/2020 7:09 AM 12/13/2020 1:51 PM Care Teams Night Filler Relationship Specialty Start Date End Date Jael Santiago NP [address] [facility] [address] [place] [address] PCP - General Family Medicine 02/27/23 Codey Lobo MD [address] [place] [address] Consulting Physician Urology 02/27/23
[2024-08-09] MEDS: BELLADONNA ALK/PHENOB ELIX 10 ML, MAG HYDROX/ALUMINUM HYD/SIMETH 30 ML, LIDOCAINE 2% VI... PO (13:17)
--- OUTSIDE RECORDS SUMMARY | 2024-08-09 14:02 | XMS_ITS | Referral Summary ---
Author Organization [facility] Address [address] [place] [address] Care Team Providers Care Charity Fundraiser Name Role Phone Jael Santiago NP Primary Care Provider [phone] Codey Lobo MD Unavailable [phone] Encounters Date Type Department Care Team Description 06/25/2024 10:00 AM MECHANOTHERAPIST Office Visit [facility] at [address] [address] Lc Khalil NP Acute maxillary sinusitis, recurrence not specified (Primary Dx) 05/31/2024 Orders Only [facility] Primary Care at [address] [address] Jael Santiago NP 05/31/2024 Orders Only [facility] Primary Care at [address] [address] Jael Santiago NP 05/31/2024 Telephone [facility] Primary Care at [address] [address] Jael Santiago NP from Last [...] 08/05/2023 Assessment & Plan (08/05/2023 11:18 AM MECHANOTHERAPIST): Contingent on lab and CXR review, patient [...] losartan/hctz Assessment & Plan (06/24/2021 10:09 AM MECHANOTHERAPIST): Confirmed he is taking medications. His BP [...] 11/07/2022 Assessment & Plan (08/01/2021 11:12 AM MECHANOTHERAPIST): Likely secondary to dietary intake over the weekend. Renal function is normal. Will give him colchicine for symptoms. Discussed potential for GI symptoms and when to stop medication. Call for new/worsening symptoms or failure to improve as anticipated. Ear fullness, left 06/24/2021 3 Assessment & Plan (06/24/2021 10:10 AM MECHANOTHERAPIST): He meets criteria for abx coverage with persistent symptoms past two weeks. Will give Augmentin. Advised continue Mucinex. Afrin x 3 days, discussed no more after that. Not giving Sudafed given his history of htn but could consider if symptoms don't resolve, would need to monitor BP carefully. Chronic sore throat 06/24/2021 11/08/19 23 Assessment & Plan (06/24/2021 10:10 AM MECHANOTHERAPIST): No acutely worse today. Restart PPI and he sees GI in 3 weeks. Will defer to them whether he needs another EGD. Seasonal allergic rhinitis due to pollen 03/20/2021 11/07/2022 Allergic rhinitis due to dust mite 03/20/2021 11/07/2022 Allergic rhinitis due to mold 03/20/2021 11/07/2022 Unilateral inguinal hernia w ithout obstruction or gangrene 07/19/2020 11/07/2022 Overview (07/19/2020): Added automatically from request for surgery [id number] Epistaxis 05/23/2020 11/07/2022 Chronic maxillary sinusitis 03/07/2020 11/07/2022 Overview (03/07/2020): Added automatically from request for surgery [id number] Hypertrophy of nasal turbinates 03/06/2020 11/07/2022 Deviated [...] on file Legal Sex Male 8:22 PM MECHANOTHERAPIST Gender Identity Not on file Sexual Orientation Straight 02/29/2020 8: 03 PM CDT Last Filed Vital Signs Vital Sign Reading Time Taken Comments Blood Pressure 122/84 06/25/2024 10:01 AM MECHANOTHERAPIST Pulse 92 06/25/2024 10:01 AM MECHANOTHERAPIST Temperature 37 C (98.6 F) 06/25/2024 10:01 AM MECHANOTHERAPIST Respiratory Rate 20 06/25/2024 10:01 AM MECHANOTHERAPIST Oxygen Saturation 98% 06/25/2024 10:01 AM MECHANOTHERAPIST Inhaled Oxygen Concentration - - Weight 93 kg (205 lb) 06/25/2024 10:01 AM MECHANOTHERAPIST Height 177.8 cm (5' 10 ) 06/25/2024 10:01 AM MECHANOTHERAPIST Body Mass Index 29.41 06/25/2024 10:01 AM MECHANOTHERAPIST Plan of Treatment Not on file Medical Devices Implanted Type Area Explosive Ordnance Handler Device Identifier Shelf Expiration Date Model / Serial / Lot [employer] [id number] Ventralight St Sepra 6x4in Monofilament Absorbable Low Profile Latex Free - [id number] Implanted:Qty: 1 on 09/07/2020 by Moe Sellers MD PhD at [facility] Mesh Left: Groin [employer]/C R Bard [id number] 11/17/2021 [id number] / / [id number] [employer] [id number] Ventralight St Sepra 6x4in Monofilament Absorbable Low Profile Latex Free - [id number] Implanted:Qty: 1 on 09/07/2020 by Moe Sellers MD PhD at [facility] Mesh Right: Groin [employer] [id number] 11/17/2021 [id number] / / [id number] Cervical Fusion N/A: Neck Procedures Procedure Name Priority Date/Time Associated Diagnosis Comments URIC ACID Routine 05/26/2024 9:28 AM MECHANOTHERAPIST LIPID PANEL Routine 05/26/2024 9:28 AM MECHANOTHERAPIST Mixed hyperlipidemia Essential hypertension COMPREHENSIVE METABOLIC PANEL Routine 05/26/2024 9:28 AM MECHANOTHERAPIST Mixed hyperlipidemia Essential hypertension CBC WITH AUTO DIFFERENTIAL Routine 05/26/2024 9:28 AM MECHANOTHERAPIST Mixed hyperlipidemia Essential hypertension HEPATITIS C ANTIBODY Routine 05/26/2024 9:28 AM MECHANOTHERAPIST Encounter for hepatitis C screening test for low risk patient PSA SCREEN Routine 11/06/2022 8:26 AM CDT Annual physical exam Screening PSA (prostate specific antigen) COLONOSCOPY 12/13/2020 6:38 AM CDT from Last 3 Months or Most Recently Relevant to Health Maintenance Results * CBC with auto differential (05/26/2024 9:28 AM MECHANOTHERAPIST) WBC 7.7 3.8 - 10.8 Thousand/u L [facility] RBC, POC 4.89 4.20 - 5.80 Million/uL [facility] Hgb 15.0 13.2 - 17.1 g/dL [facility] Hct 45.2 38.5 - 50.0 % [facility] MCV 92.4 80.0 - 100.0 fL [facility] MCH 30.7 27.0 - 33.0 pg [facility] MCHC 33.2 32.0 - 36.0 g/dL [facility] Comment: For adults, a slight decrease in the calculated MCHC value (in the range of 30 to 32 g/dL) is most likely not clinically significant; however, it should be interpreted with caution in correlation with other red cell parameters and the patient's clinical condition. Rdw 13.2 11.0 - 15.0 % [facility] Platelets 240 140 - 400 Thousand/u L [facility] MPV 11.7 7.5 - 12.5 fL [facility] Neutrophils, abs 4,481 1,500 - 7,800 cells/uL [facility] Lymphocytes, abs 2,433 850 - 3,900 cells/uL [facility] Monocyte abs 578 200 - 950 cells/uL [facility] Eosinophils, abs 169 15 - 500 cells/uL [facility] Basophils, abs 39 0 - 200 cells/uL [facility] Neutrophils 58.2 % [facility] Lymphocyte pct 31.6 % [facility] Monocytes 7.5 % [facility] Eosinophils 2.2 % [facility] Basophils 0.5 % [facility] Blood 05/26/2024 9:28 AM MECHANOTHERAPIST 05/26/2024 9:30 AM MECHANOTHERAPIST Narrative [facility] - 05/27/2024 2:03 AM MECHANOTHERAPIST FASTING:YES PATIENT REFUSED SOME TESTING; PATIENT ENCOURAGED TO RETURN. FASTING: YES us Jael Santiago NP LAB BLOOD ORDERABLES Final Resul t [facility] [address] [place] [address] * Hepatitis C antibody Blood (05/26/2024 9:28 AM MECHANOTHERAPIST) Hep C Ab NON-REACTI VE NON-REACT ENRIQUE [facility] Comment: HCV antibody was non-reactive. There is no laboratory evidence of HCV infection. In most cases, no further action is required. However, if recent HCV exposure is suspected, a test for HCV RNA (test code 32095) is suggested. For additional information please refer to http://education.Readz/faq/AQF60t0 (This link is being provided for informational/ educational purposes only.) Blood 05/26/2024 9:28 AM MECHANOTHERAPIST 05/26/2024 9:30 AM MECHANOTHERAPIST Narrative [facility] - 05/27/2024 2:03 AM MECHANOTHERAPIST FASTING:YES PATIENT REFUSED SOME TESTING; PATIENT ENCOURAGED TO RETURN. FASTING: YES us Jael Santiago NP LAB MICROBIOLOGY - GENERAL ORDER JESU Final Result Performing Organization Address [facility]/ZIP Co de Phone Number [facility] [address] [place] [address] * (ABNORMAL) Uric acid (05/26/2024 9:28 AM MECHANOTHERAPIST) Uric acid 8.2(H) 4.0 - 8.0 mg/dL [facility] Comment: Therapeutic target for gout patients: <6.0 mg/dL 05/26/2024 9:28 AM MECHANOTHERAPIST 05/26/2024 9:30 AM MECHANOTHERAPIST Narrative [facility] - 05/27/2024 2:03 AM MECHANOTHERAPIST FASTING:YES PATIENT REFUSED SOME TESTING; PATIENT ENCOURAGED TO RETURN. FASTING: YES us Jael Santiago NP LAB BLOOD ORDERABLES Final Resul t [facility] [address] [place] [address] * (ABNORMAL) Lipid panel (05/26/2024 9:28 AM MECHANOTHERAPIST) Cholesterol 164 <200 mg/dL [facility] [...] of LDL-C. Rony COOMBS et al. LEEROY. 2013;310(88): 8277-3789 (http://education.Buzzvil/faq/QWR745) Chol/HDL ratio 2.7 <5.0 (calc) [facility] Non-HDL, (LDL+VLDL) 103 <130 mg/dL (calc) [facility] Comment: For patients with diabetes plus 1 major ASCVD risk factor, treating to a non-HDL-C goal of <100 mg/dL (LDL-C of <70 mg/dL) is considered a therapeutic option. Blood 05/26/2024 9:28 AM MECHANOTHERAPIST 05/26/2024 9:30 AM MECHANOTHERAPIST Narrative [facility] - 05/27/2024 2:03 AM MECHANOTHERAPIST FASTING:YES PATIENT REFUSED SOME TESTING; PATIENT ENCOURAGED TO RETURN. FASTING: YES Jael Santiago NP LAB BLOOD ORDERABLES Final Resul t [facility] [address] [place] [address] * (ABNORMAL) Comprehensive metabolic panel (05/26/2024 9:28 AM MECHANOTHERAPIST) Pathologist [facility] Glucose 100(H) 65 - 99 mg/dL [facility] Comment: Fasting reference interval For someone without known diabetes, a glucose value between 100 and 125 mg/dL is consistent with prediabetes and should be confirmed with a follow-up test. BUN 12 7 - 25 mg/dL [facility] Creatinine 0.96 0.70 - 1.30 mg/dL [facility] eGFR 95 > OR = 60 mL/min/1.7 3m2 [facility] BUN/creat ratio SEE NOTE: 6 - 22 (calc) [facility] Comment: Not Reported: BUN and Creatinine are within reference range. Sodium 140 135 - 146 mmol/L [facility] Potassium, pl 3.7 3.5 - 5.3 mmol/L [facility] Chloride 102 98 - 110 mmol/L [facility] CO2 28 20 - 32 mmol/L [facility] Calcium 9.3 8.6 - 10.3 mg/dL [facility] Protein, sr 6.4 6.1 - 8.1 g/dL [facility] Albumin 4.2 3.6 - 5.1 g/dL [facility] GLOBULIN 2.2 1.9 - 3.7 g/dL (calc) [facility] Alb/glob ratio 1.9 1.0 - 2.5 (calc) [facility] Bilirubin, total 0.6 0.2 - 1.2 mg/dL [facility] Alk phos 57 35 - 144 U/L [facility] AST 21 10 - 35 U/L [facility] ALT (SGPT) 20 9 - 46 U/L [facility] Blood 05/26/2024 9:28 AM MECHANOTHERAPIST 05/26/2024 9:30 AM MECHANOTHERAPIST Narrative [facility] - 05/27/2024 2:03 AM MECHANOTHERAPIST FASTING:YES PATIENT REFUSED SOME TESTING; PATIENT ENCOURAGED TO RETURN. FASTING: YES us Jael Santiago FLYER MAKER LAB BLOOD ORDERABLES Final Resul t [facility] [address] [place] [address] * (ABNORMAL) PSA screen (11/06/2022 8:26 AM CDT) PSA 4.36(H) < OR = 4.00 ng/mL [facility] Comment: The total PSA value from this assay system is standardized against the WHO standard. The test result will be approximately 20% lower when compared to the equimolar-standardized total PSA ([place]). Comparison of serial PSA results should be [...] ORDERABLES Final Resu lt [facility] [address] [address] * COLONOSCOPY (12/13/2020 6:38 AM CDT) Anatomical Region Laterality Modality Other Narrative Procedure Note Luke Espinoza MD - 12/13/2020 6:38 AM CDT ENDOSCOPY LAB Patient Name: Ty Crowley Procedure Date: 12/13/2020 6:38 AM Admit Type: Outpatient Room: [facility] Date of : 1970 Instrument Name: [...] Most Recently Relevant to Health Maintenance Insurance Out[employer] OOS Out[employer] OOS Advance Directives For more information, please contact: [phone] * Full Code (Latest Code Status on File) Date Activated Date Inactivated Comments 12/13/2020 7:09 AM 12/13/2020 1:51 PM Care Teams Charity Fundraiser Relationship Specialty Start Date End Date Jael Santiago NP [address] [facility] [address] [place] [address] PCP - General Family Medicine 02/27/23 Codey Lobo MD [address] [place] [address] Consulting Physician Urology 02/27/23
--- OUTSIDE RECORDS SUMMARY | 2024-08-09 14:02 | XMS_ITS | Clinical Summary ---
Author Organization [facility] Address [address] [place] [address] Care Team Providers Care Managed Care Coordinator Name Role Phone Jael Santiago NP Primary Care Provider [phone] Codey Lobo MD Unavailable Allergies Active Allergy Reactions Criticality Noted Date [...] 08/05/2023 Assessment & Plan (08/05/2023 11:18 AM DIRECTOR OF EXTENSION WORK): Contingent on lab and CXR review, patient [...] losartan/hctz Assessment & Plan (06/24/2021 10:09 AM DIRECTOR OF EXTENSION WORK): Confirmed he is taking medications. His BP [...] 11/07/2022 Assessment & Plan (08/01/2021 11:12 AM DIRECTOR OF EXTENSION WORK): Likely secondary to dietary intake over the weekend. Renal function is normal. Will give him colchicine for symptoms. Discussed potential for GI symptoms and when to stop medication. Call for new/worsening symptoms or failure to improve as anticipated. Ear fullness, left 06/24/2021 3 Assessment & Plan (06/24/2021 10:10 AM DIRECTOR OF EXTENSION WORK): He meets criteria for abx coverage with persistent symptoms past two weeks. Will give Augmentin. Advised continue Mucinex. Afrin x 3 days, discussed no more after that. Not giving Sudafed given his history of htn but could consider if symptoms don't resolve, would need to monitor BP carefully. Chronic sore throat 06/24/2021 11/08/19 23 Assessment & Plan (06/24/2021 10:10 AM DIRECTOR OF EXTENSION WORK): No acutely worse today. Restart PPI and he sees GI in 3 weeks. Will defer to them whether he needs another EGD. Seasonal allergic rhinitis due to pollen 03/20/2021 11/07/2022 Allergic rhinitis due to dust mite 03/20/2021 11/07/2022 Allergic rhinitis due to mold 03/20/2021 11/07/2022 Unilateral inguinal hernia w ithout obstruction or gangrene 07/19/2020 11/07/2022 Overview (07/19/2020): Added automatically from request for surgery [id number] Epistaxis 05/23/2020 11/07/2022 Chronic maxillary sinusitis 03/07/2020 11/07/2022 Overview (03/07/2020): Added automatically from request for surgery [id number] Hypertrophy of nasal turbinates 03/06/2020 11/07/2022 Deviated nasal septum 03/06/20202022 Osteoarthritis of spine with radiculopathy, cervical region 12/09/2017 11/07/2022 Encounters Date Type Department Care Team Description 06/25/2024 10:00 AM DIRECTOR OF EXTENSION WORK Office Visit [facility] [address] [address] Lc Khalil NP Acute maxillary sinusitis, recurrence not specified (Primary Dx) 05/31/2024 Orders Only [facility] [address] [address] Jael Santiago NP 05/31/2024 Orders Only [facility] [address] [address] Jael Santiago NP 05/31/2024 Telephone [facility] [address] [address] Jael Santiago NP from Last [...] 10/09/2020,09/18/2020 Surgical History Surgery Date Site/Laterality Comments IA RHINP PRIM LAT&ALAR CRTLGS&/ELVTN NASAL TI Rhinoplasty - (Added by TW Conv) IA CHOLECYSTECTOMY Cholecystectomy - (Added by TW Conv) NECK SURGERY Neck Surgery - C5-C6 fusion (Added by TW Conv) ANKLE SURGERY Ankle Surgery - achilles repair (Added by TW Conv) IA NJX AA&/STRD TFRML EPI CERVICAL/THORACIC 1 LEVEL Corticosteroid Inj Transforaminal Approach Cervical W/ Fluoroscopic Guidance - Right C6-7 (Added by TW Conv) IA INJ CERV/THORAC,W/WO CNTRST Corticosteroid Injection Interlaminar Approach [...] Added automatically from req uest for surgery [id number] Chronic maxillary sinusitis 03/07/2020 Adde d automatically from request for surgery [id number] Epistaxis 05/23/2020 Ear fullness, left 06/24/2021 Chronic sore throat 06/24/2021 Seasonal allergic rhinitis d ue to pollen 03/20/2021 Allergic rhinitis due to dust mite 03/20/2021 Allergic rhinitis due to mold 03/20/2021 Hypertrophy of nasal turbinates 03/06/2020 Deviated nasal septum 03/06/2020 Osteoarthritis of spine with radiculopathy, cervical region 12/09/2017 Family History Medical History Relation Name Comments Clotting disorder Father [place] Gout Father [place] Hypertension Father [place] Family history of hypertension - (Added by [...] on file Legal Sex Male 8:22 PM DIRECTOR OF EXTENSION WORK Gender Identity Not on file Sexual Orientation Straight 02/29/2020 8: 03 PM CDT Obstetrics History Last Filed Vital Signs Vital Sign Reading Time Taken Comments Blood Pressure 122/84 06/25/2024 10:01 AM DIRECTOR OF EXTENSION WORK Pulse 92 06/25/2024 10:01 AM DIRECTOR OF EXTENSION WORK Temperature 37 C (98.6 F) 06/25/2024 10:01 AM DIRECTOR OF EXTENSION WORK Respiratory Rate 20 06/25/2024 10:01 AM DIRECTOR OF EXTENSION WORK Oxygen Saturation 98% 06/25/2024 10:01 AM DIRECTOR OF EXTENSION WORK Inhaled Oxygen Concentration - - Weight 93 kg (205 lb) 06/25/2024 10:01 AM DIRECTOR OF EXTENSION WORK Height 177.8 cm (5' 10 ) 06/25/2024 10:01 AM DIRECTOR OF EXTENSION WORK Body Mass Index 29.41 06/25/2024 10:01 AM DIRECTOR OF EXTENSION WORK Plan of Treatment Health Maintenance Due Date [...] Completed 05/26/2024 Medical Devices Implanted Type Area Bow Making Machine Operator Device Identifier Shelf Expiration Date Model / Serial / Lot [employer] [id number] Ventralight St Sepra 6x4in Monofilament Absorbable Low Profile Latex Free - [id number] Implanted:Qty: 1 on 09/07/2020 by Moe Sellers MD PhD at [facility] Mesh Left: [employer]in [employer]/C R Bard [id number] 11/17/2021 [id number] / / [id number] [employer] [id number] Ventralight [address] Sepra 6x4in Monofilament Absorbable Low Profile Latex Free - [id number] Implanted:Qty: 1 on 09/07/2020 by Moe Sellers MD PhD at [facility] Mesh Right: [employer]in [employer] [id number] 11/17/2021 [id number] / / [id number] Cervical Fusion N/A: Neck Procedures Procedure Name Priority Date/Time Associated Diagnosis Comments URIC ACID Routine 05/26/2024 9:28 AM DIRECTOR OF EXTENSION WORK LIPID PANEL Routine 05/26/2024 9:28 AM DIRECTOR OF EXTENSION WORK Mixed hyperlipidemia Essential hypertension COMPREHENSIVE METABOLIC PANEL Routine 05/26/2024 9:28 AM DIRECTOR OF EXTENSION WORK Mixed hyperlipidemia Essential hypertension CBC WITH AUTO DIFFERENTIAL Routine 05/26/2024 9:28 AM DIRECTOR OF EXTENSION WORK Mixed hyperlipidemia Essential hypertension HEPATITIS C ANTIBODY Routine 05/26/2024 9:28 AM DIRECTOR OF EXTENSION WORK Encounter for hepatitis C screening test for low risk patient PSA SCREEN Routine 11/06/2022 8:26 AM CDT Annual physical exam Screening PSA (prostate specific antigen) COLONOSCOPY 12/13/2020 6:38 AM CDT from Last 3 Months or Most Recently Relevant to Health Maintenance Results * CBC with auto differential (05/26/2024 9:28 AM DIRECTOR OF EXTENSION WORK) WBC 7.7 3.8 - 10.8 Thousand/u L [place] RBC, POC 4.89 4.20 - 5.80 Million/uL [place] Hgb 15.0 13.2 - 17.1 g/dL [place] Hct 45.2 38.5 - 50.0 % [place] MCV 92.4 80.0 - 100.0 fL [facility] MCH 30.7 27.0 - 33.0 pg [facility] MCHC 33.2 32.0 - 36.0 g/dL [facility] Comment: For adults, a slight decrease in the calculated MCHC value (in the range of 30 to 32 g/dL) is most likely not clinically significant; however, it should be interpreted with caution in correlation with other red cell parameters and the patient's clinical condition. Rdw 13.2 11.0 - 15.0 % [place] Platelets 240 140 - 400 Thousand/u L [facility] MPV 11.7 7.5 - 12.5 fL [facility] Neutrophils, abs 4,481 1,500 - 7,800 cells/uL [facility] Lymphocytes, abs 2,433 850 - 3,900 cells/uL [facility] Monocyte abs 578 200 - 950 cells/uL [facility] Eosinophils, abs 169 15 - 500 cells/uL [facility] Basophils, abs 39 0 - 200 cells/uL [facility] Neutrophils 58.2 % [facility] Lymphocyte pct 31.6 % [facility] Monocytes 7.5 % [facility] Eosinophils 2.2 % [facility] Basophils 0.5 % [facility] Blood 05/26/2024 9:28 AM DIRECTOR OF EXTENSION WORK 05/26/2024 9:30 AM DIRECTOR OF EXTENSION WORK Narrative [facility] - 05/27/2024 2:03 AM DIRECTOR OF EXTENSION WORK FASTING:YES PATIENT REFUSED SOME TESTING; PATIENT ENCOURAGED TO RETURN. FASTING: YES Jael Santiago NP LAB BLOOD ORDERABLES Final Resul t Performing Organization Address City/[facility]/ZIP Co de Phone Number [facility] [address] [place] [address] * Hepatitis C antibody Blood (05/26/2024 9:28 AM DIRECTOR OF EXTENSION WORK) Hep C Ab NON-REACTI VE NON-REACT ENRIQUE [facility] Comment: HCV antibody was non-reactive. There is no laboratory evidence of HCV infection. In most cases, no further action is required. However, if recent HCV exposure is suspected, a test for HCV RNA (test code 38335) is suggested. For additional information please refer to http://education.woodpellets.com/faq/QGP44d7 (This link is being provided for informational/ educational purposes only.) Blood 05/26/2024 9:28 AM DIRECTOR OF EXTENSION WORK 05/26/2024 9:30 AM DIRECTOR OF EXTENSION WORK Narrative [facility] - 05/27/2024 2:03 AM DIRECTOR OF EXTENSION WORK FASTING:YES PATIENT REFUSED SOME TESTING; PATIENT ENCOURAGED TO RETURN. FASTING: YES Jael Santiago NP LAB MICROBIOLOGY - GENERAL ORDER JESU Final Result Performing Organization Address City/[facility]/ZIP Co de Phone Number [facility] [address] [place] [address] * (ABNORMAL) Uric acid (05/26/2024 9:28 AM DIRECTOR OF EXTENSION WORK) Uric acid 8.2(H) 4.0 - 8.0 mg/dL [facility] Comment: Therapeutic target for gout patients: <6.0 mg/dL 05/26/2024 9:28 AM DIRECTOR OF EXTENSION WORK 05/26/2024 9:30 AM DIRECTOR OF EXTENSION WORK Narrative [facility] - 05/27/2024 2:03 AM DIRECTOR OF EXTENSION WORK FASTING:YES PATIENT REFUSED SOME TESTING; PATIENT ENCOURAGED TO RETURN. FASTING: YES us Jael Santiago BARGE ENGINEER LAB BLOOD ORDERABLES Final Resul t Performing Organization Address [facility] Co de Phone Number [facility] [address] [place] [address] * (ABNORMAL) Lipid panel (05/26/2024 9:28 AM DIRECTOR OF EXTENSION WORK) [facility] Cholesterol 164 <200 mg/dL [facility] HDL 61 > OR = 40 mg/dL [facility] Triglycerides 160(H) <150 mg/dL [facility] LDL 77 mg/dL (calc) [facility] Comment: Reference range: <100 Desirable range <100 mg/dL for primary prevention; <70 mg/dL for patients with CHD or diabetic patients with > or = 2 CHD risk factors. LDL-C is now calculated using the Rony-Piotr calculation, which is a validated novel method providing better accuracy than the Friedewald equation in the estimation of LDL-C. Rony SS et al. LEEROY. 2013;310(19): 9182-2865 (http://education.FullContact/faq/WBE873) Chol/HDL ratio 2.7 <5.0 (calc) [facility] Non-HDL, (LDL+VLDL) 103 <130 mg/dL (calc) [facility] Comment: For patients with diabetes plus 1 major ASCVD risk factor, treating to a non-HDL-C goal of <100 mg/dL (LDL-C of <70 mg/dL) is considered a therapeutic option. Blood 05/26/2024 9:28 AM DIRECTOR OF EXTENSION WORK 05/26/2024 9:30 AM DIRECTOR OF EXTENSION WORK Narrative [facility] - 05/27/2024 2:03 AM DIRECTOR OF EXTENSION WORK FASTING:YES PATIENT REFUSED SOME TESTING; PATIENT ENCOURAGED TO RETURN. FASTING: YES us Jael Santiago NP LAB BLOOD ORDERABLES Final Resul t Performing Organization Address [facility] Co de Phone Number [facility] [address] [place] [address] * (ABNORMAL) Comprehensive metabolic panel (05/26/2024 9:28 AM DIRECTOR OF EXTENSION WORK) Glucose 100(H) 65 - 99 mg/dL [facility] Comment: Fasting reference interval For someone without known diabetes, a glucose value between 100 and 125 mg/dL is consistent with prediabetes and should be confirmed with a follow-up test. BUN 12 7 - 25 mg/dL [facility] Creatinine 0.96 0.70 - 1.30 mg/dL [email or web address] Harry eGFR 95 > OR = 60 mL/min/1.7 3m2 [facility] BUN/creat ratio SEE NOTE: 6 - 22 (calc) [facility] Comment: Not Reported: BUN and Creatinine are within reference range. Sodium 140 135 - 146 mmol/L [facility] Potassium, pl 3.7 3.5 - 5.3 mmol/L [facility] Chloride 102 98 - 110 mmol/L [email or web address] Mcdonald CO2 28 20 - 32 mmol/L [facility] Calcium 9.3 8.6 - 10.3 mg/dL [email or web address] M[facility] Protein, sr 6.4 6.1 - 8.1 g/dL [facility] Albumin 4.2 3.6 - 5.1 g/dL [facility] GLOBULIN 2.2 1.9 - 3.7 g/dL (calc) [facility] Alb/glob ratio 1.9 1.0 - 2.5 (calc) [facility] Bilirubin, total 0.6 0.2 - 1.2 mg/dL [email or web address] Mcd[facility] Alk phos 57 35 - 144 U/L [facility] AST 21 10 - 35 U/L [facility] Harry ALT (SGPT) 20 9 - 46 U/L [facility] Blood 05/26/2024 9:28 AM DIRECTOR OF EXTENSION WORK 05/26/2024 9:30 AM DIRECTOR OF EXTENSION WORK Narrative [facility] - 05/27/2024 2:03 AM DIRECTOR OF EXTENSION WORK FASTING:YES PATIENT REFUSED SOME TESTING; PATIENT ENCOURAGED TO RETURN. FASTING: YES us Jael Santiago BARGE ENGINEER LAB BLOOD ORDERABLES Final Resul t [facility] [address] [address] * (ABNORMAL) PSA screen (11/06/2022 8:26 AM CDT) PSA 4.36(H) < OR = 4.00 ng/mL [facility] Comment: The total PSA value from this assay system is standardized against the WHO standard. The test result will be approximately 20% lower when compared to the equimolar-standardized total PSA (Gumaro Setven). Comparison of serial PSA results should be [...] AM CDT FASTING:YES FASTING: YES Jackie Carlos BARGE ENGINEER LAB BLOOD ORDERABLES Final Resu lt Performing Organization Address City/[facility]/ZIP Co de Phone Number [facility] [address] [place] [address] * COLONOSCOPY (12/13/2020 6:38 AM CDT) Anatomical Region Laterality Modality Other Narrative Procedure Note Luke Espinoza MD - 12/13/2020 6:38 AM CDT ENDOSCOPY LAB Patient Name: Ty Franklinkins Procedure Date: 12/13/2020 6:38 AM Admit Type: Outpatient Room: [facility] 1 Date of : 1970 Instrument Name: [id number] Gender: Male Note Status: Finalized Procedure: Colonoscopy Indications: Screening for colorectal malignant neoplasm, Thisis the patient's first colonoscopy Providers: Eda sEpinoza M.D. Referring MD: Noemy Dan M.D. Medicines: [...] Most Recently Relevant to Health Maintenance Insurance [email or web address] ACCESS OOS BLUE ACCESS OOS Advance Directives For more information, please contact: [phone] * Full Code (Latest Code Status on File) Date Activated Date Inactivated Comments 12/13/2020 7:09 AM 12/13/2020 1:51 PM Care Teams Managed Care Coordinator Relationship Specialty Start Date End Date Jael Santiago NP [address] [facility] [address] [place] [address] PCP - General Family Medicine 02/27/23 Codey Lobo MD [address] [place] [address] Consulting Physician Urology 02/27/23
== END 2024-08-09 13:34 | disposition home or self-care (01) ==
PROVIDERS: Emergency Medicine; Emergency Provider Physician Assistant; PCP Nurse Practitioner Family
DX: K20.90 Esophagitis, unspecified without bleeding (principal); R05.3 Chronic cough
CPT/HCPCS: 36415; 71046; 74177; 80053; 85025; 85380; 85610; 85730; 86850; 86900; 86901; 96374; 96375; 99284; A9270; J2405; J2470; Q9967